=== PATIENT | female | born 1985 | race Caucasian/White ===

== ENCOUNTER 2018-08-06 13:01 | Emergency (ER) | payer OTHER ==
[~2018-08-06] VITALS: Ht 160 cm; Wt 63.5 kg
[2018-08-06 13:09] VITALS: Ht 160 cm; Wt 63.5 kg
[2018-08-06 15:19] VITALS: BP 106/74
== END 2018-08-06 15:19 | disposition home or self-care (01) ==
LOC: ED 13:01
DX: L29.9 Pruritus, unspecified (principal); T39.315A Adverse effect of propionic acid derivatives, initial encounter; G43.909 Migraine, unspecified, not intractable, without status migrainosus; Z90.49 Acquired absence of other specified parts of digestive tract; Z88.8 Allergy status to other drugs, medicaments and biological substances; Y92.89 Other specified places as the place of occurrence of the external cause
CPT/HCPCS: J2930; J3490

== ENCOUNTER 2019-01-01 13:39 | Emergency (ER) | payer OTHER ==
[~2019-01-01] VITALS: Ht 160 cm; Wt 71.2 kg
[2019-01-01 14:22] VITALS: Ht 160 cm; Wt 71.2 kg
[2019-01-01 18:09] VITALS: BP 129/84
== END 2019-01-01 18:09 | disposition home or self-care (01) ==
LOC: ED 13:39
DX: G43.909 Migraine, unspecified, not intractable, without status migrainosus (principal); Z90.49 Acquired absence of other specified parts of digestive tract; Z88.6 Allergy status to analgesic agent; Z98.890 Other specified postprocedural states; Z90.89 Acquired absence of other organs
CPT/HCPCS: J1200; J2270; J2765; J3030; J7030